=== PATIENT | male | born 1995 | race African-American/Black ===

== ENCOUNTER 2017-03-14 19:52 | Emergency (ER) | payer MEDICAID ==
[~2017-03-14] VITALS: Ht 175.3 cm; Wt 96.8 kg
[2017-03-14] MEDS ORDERED: IBUPROFEN 600MG TABLET PO ONE (22:45)
[2017-03-14 23:01] VITALS: BP 135/73
== END 2017-03-14 23:09 | disposition home or self-care (01) ==
LOC: ER 19:52
DX: S70.262A Insect bite (nonvenomous), left hip, initial encounter (principal); L30.9 Dermatitis, unspecified; W57.XXXA Bitten or stung by nonvenomous insect and other nonvenomous arthropods, initial encounter; Y93.89 Activity, other specified; Y92.89 Other specified places as the place of occurrence of the external cause
CPT/HCPCS: 99283